=== PATIENT | female | born 1985 ===

== ENCOUNTER 2025-03-20 01:10 | Observation (INO) | payer OTHER, MEDICAID ==
[2025-03-20] MEDS: Metoprolol Tartrate 5 MG/5 ML SDV IVPUSH ONE (02:04)
[2025-03-20 02:07] LABS: BASOPHILS ABSOLUTE AUTO 0.02 10^3/uL (0.00-0.50); BASOPHILS PERCENT AUTO 0.2 % (0-1); EOSINOPHILS ABSOLUTE AUTO 0.03 10^3/uL (0.00-1.50); EOSINOPHILS PERCENT AUTO 0.3 % (0-6); IMMATURE GRAN ABSOLUTE AUTO 0.03 10^3/uL (0.00-0.49); IMMATURE GRAN PERCENT AUTO 0.3 % (0.0-4.9); LYMPHOCYTES ABSOLUTE AUTO 1.42 10^3/uL (0.60-5.00); LYMPHOCYTES PERCENT AUTO 12.5 % (24-44); MONOCYTES ABSOLUTE AUTO 0.39 10^3/uL (0.00-1.50); MONOCYTES PERCENT AUTO 3.4 % (0-10); NEUTROPHILS ABSOLUTE AUTO 9.44 x10^3/uL (1.80-8.00); NEUTROPHILS PERCENT AUTO 83.3 % (41-71); PLATELET COUNT,PLT 190 10^3/uL (150-400); RED BLOOD CELL COUNT 4.35 x10^6/uL (4.00-5.50); WHITE BLOOD CELL COUNT,WBC 11.3 10^3/uL (4.0-11.0)
[2025-03-20 02:34] LABS: ALANINE AMINOTRANSFERASE,ALT 31 U/L (12-78); ASPARTATE AMNIOTRANSFERASE,AST 41 U/L (15-37); BILIRUBIN TOTAL 0.3 mg/dL (0.0-1.0); BLOOD UREA NITROGEN,BUN 13 mg/dL (7-18); CARBON DIOXIDE,CO2 20 mmol/L (21-32); CHLORIDE,CL 104 mEq/L (98-106); CREATININE 0.7 mg/dL (0.6-1.0); EST CRCL DRUG DOSING (CG) 113.88 mL/min; ETHANOL BLOOD MEDICAL 155 mg/dL (0-3); GLUCOSE RANDOM 107 mg/dL (75-99); POTASSIUM,K 3.3 mEq/L (3.5-5.0); PROTEIN TOTAL,TP 5.9 g/dL (6.4-8.2); SODIUM,NA 140 mEq/L (136-145); TSH ULTRASENSITIVE 1.36 uIU/mL (0.36-5.60)
[2025-03-20 02:35] LABS: ESTIMATED GFR 113 mL/min (>=60)
[2025-03-20] MEDS: Etomidate 2 MG/ML 10 ML SDV IVPUSH ONE (03:00)
[2025-03-20] MEDS: fentaNYL 50 MCG/ML SDV IVPUSH ONE (03:02)
[2025-03-20] MEDS: Potassium Chloride 20 MEQ Tab.ER PO ONE (04:17)
[2025-03-20] MEDS ORDERED: Ondansetron 4 MG Tab.DIS PO PRN (04:20)
[2025-03-20] MEDS ORDERED: Ondansetron 4 MG/2 ML SDV IV PRN (04:20)
[2025-03-20 08:20] LABS: BASOPHILS ABSOLUTE AUTO 0.02 10^3/uL (0.00-0.50); BASOPHILS PERCENT AUTO 0.3 % (0-1); EOSINOPHILS ABSOLUTE AUTO 0.01 10^3/uL (0.00-1.50); EOSINOPHILS PERCENT AUTO 0.1 % (0-6); IMMATURE GRAN ABSOLUTE AUTO 0.02 10^3/uL (0.00-0.49); IMMATURE GRAN PERCENT AUTO 0.3 % (0.0-4.9); LYMPHOCYTES ABSOLUTE AUTO 1.62 10^3/uL (0.60-5.00); LYMPHOCYTES PERCENT AUTO 21.5 % (24-44); MONOCYTES ABSOLUTE AUTO 0.44 10^3/uL (0.00-1.50); MONOCYTES PERCENT AUTO 5.8 % (0-10); NEUTROPHILS ABSOLUTE AUTO 5.44 x10^3/uL (1.80-8.00); NEUTROPHILS PERCENT AUTO 72.0 % (41-71); PLATELET COUNT,PLT 314 10^3/uL (150-400); RED BLOOD CELL COUNT 4.02 x10^6/uL (4.00-5.50); WHITE BLOOD CELL COUNT,WBC 7.6 10^3/uL (4.0-11.0)
[2025-03-20 08:53] LABS: ALANINE AMINOTRANSFERASE,ALT 41.0 U/L (12-78); ASPARTATE AMNIOTRANSFERASE,AST 43.0 U/L (15-37); BILIRUBIN TOTAL 0.4 mg/dL (0.0-1.0); BLOOD UREA NITROGEN,BUN 9.0 mg/dL (7-18); CARBON DIOXIDE,CO2 24.0 mmol/L (21-32); CHLORIDE,CL 109.0 mEq/L (98-106); CREATININE 0.7 mg/dL (0.6-1.0); EST CRCL DRUG DOSING (CG) 113.88 mL/min; GLUCOSE RANDOM 87.0 mg/dL (75-99); POTASSIUM,K 4.7 mEq/L (3.5-5.0); PROTEIN TOTAL,TP 5.4 g/dL (6.4-8.2); SODIUM,NA 142.0 mEq/L (136-145)
[2025-03-20 08:55] LABS: ESTIMATED GFR 113.0 mL/min (>=60)
[2025-03-20 11:12] LABS: APPEARANCE,URINE CLEAR (CLEAR); GLUCOSE,URINE NEGATIVE (NEGATIVE); OCCULT BLOOD,URINE LARGE (NEGATIVE)
[2025-03-20 11:18] LABS: AMPHETAMINES,URINE NEGATIVE (NEGATIVE); BARBITURATES,URINE NEGATIVE (NEGATIVE); MDMA (ECSTASY), URINE NEGATIVE (NEGATIVE); METHAMPHETAMINES,URINE NEGATIVE (NEGATIVE); OPIATES,URINE NEGATIVE (NEGATIVE); OXYCODONE,URINE NEGATIVE (NEGATIVE); PHENCYCLIDINE,URINE NEGATIVE (NEGATIVE); TCA,URINE NEGATIVE (NEGATIVE)
[2025-03-20 11:35] LABS: EPITHELIAL CELLS,URINE MODERATE /HPF (NOT SEEN)
== END 2025-03-20 12:15 | disposition home or self-care (01) ==
LOC: CC.ED 01:10 → CC.MS 03:29 → UNDOADMOB 03:45 → CC.MS 03:45 → UNDODISOB 12:15
PROVIDERS: ADMIT Nurse Practitioner; ATTEND Nurse Practitioner
DX: F10.920 Alcohol use, unspecified with intoxication, uncomplicated (principal); I48.91 Unspecified atrial fibrillation; E86.0 Dehydration; Z88.0 Allergy status to penicillin; Z79.82 Long term (current) use of aspirin; Z79.899 Other long term (current) drug therapy
CPT/HCPCS: 36415; 80053; 80143; 80179; 80305-QW; 80307; 81001; 81025; 83735; 84443; 84484; 85025; 93005; 93010; 93246; 99236; A9270-GY; J0616; J3010; J3490; J7030